=== PATIENT | male | born 1980 | race Caucasian/White ===

== ENCOUNTER 2021-01-02 12:21 | Emergency (ER) | payer BC, SELFPAY ==
[2021-01-02 12:39] VITALS: BP 148/86; PULSE 81; RESP 14; TEMP 36.9; O2SAT 97; BMI 29.4
--- NOTE | 2021-01-02 12:47 | HMH.EDUTC ---
[facility] [place] Clinical Impression: Encounter for laboratory testing for COVID-19 virus Disposition: Home, Self-Care Condition on Discharge: Good Instructions: DI for COVID-19 (Suspected or Confirmed ), Coronavirus Disease 2019, Preventing the Spread of Coronavirus Discharge Instructions Additional Instructions: *Monitor Temp, Over the counter Motrin or Tylenol as directed/as needed Tylenol every 4 hours and Motrin every 6 hours (as long as your family doctor has told you that you can take it) for fever or pain. and straight to ER if unable to lower temp less than 101.0 after medication given Follow up IMMEDIATELY for new or worsening symptoms or no Noticeable improvement over the next 48-72 hours. 911 for difficulty breathing or swallowing You were tested for today for COVID19 your test result should be back in the next 24-48 hours, you may call to the [facility] to see if your test results are back in the next 48 hours [phone] [facility] hours are 9am-9pm You was given a handout with instructions for Self Quarantine and Self isolation for while you wait on test results and what to do if they are positive If you are positive the Health Dept will be contacting you also Referrals: PCP,No [Primary Care Provider] - As needed Forms: Work/School Release Time of Disposition: 12:48 Medical Decision Making - Dre Inquiry Pt receiving controlled substance: No Dre was queried for this patient: No Vital Signs: 01/02/21 12:39 Temperature 98.5 F Temperature Source Oral Pulse Rate [Left] 81 Respiratory Rate 14 Blood Pressure [Right Arm] 148/86 H Blood Pressure Mean [Right Arm] 106 Blood Pressure Source [Right Arm] Automatic Cuff Blood Pressure Position [Right Arm] Sitting 02 Sat by Pulse Oximetry 97 Oxygen Delivery Method Room Air Orders (Tests/Meds): ORDERS Category Date Time Status Covid-19 Nasal PCR ([facility]) Routine Lab 01/02/21 12:25 [place]dered [facility] [place] - General Stated complaint: covid test Time Seen by Provider: 01/02/21 12:47 Mode of Arrival: Ambulatory Source of Information: Patient Limitations: No Limitations HEENT Symptoms (Recalled from RN notes): No Resp Symptoms (Recalled from RN notes): No Skin Symptoms (Recalled from RN notes): No MS Symptoms (Recalled from RN notes): No Functional Status (Recalled from RN notes): na - History of Present Illness Provider Complaint: Patient state that he has been under quarantine for COVID exposure States that he had a test about 10 days ago and it was negative and needed to get tested again before he can go back to work denies any symptoms - Related Data Home Medications Medication Instructions Recorded Confirmed No Known Home Medications 02/18/20 02/18/20 Allergies Allergy/AdvReac Type Severity Reaction Status Date / Time No Known Allergies Allergy Verified 02/18/20 10:51 - Worker's Comp Is this a Worker's Comp case?: No [facility] History - Hepatitis A Screen Drug use history?: No High risk sexual behaviors?: No History of sexually transmitted infection?: No Currently employed?: No Childcare worker?: No Do you have indoor plumbing?: Yes Do you have electricity?: Yes Attestation statement:: This patient has been screened for Hepatitis A risk factors. I have reviewed the patient's past medical history: Yes Other Surgeries: Yes: No Previous Surgery - Social History Smoking Status: Never smoker Tobacco Type: e-cigarettes # Packs/Day (cigarettes): 1 Alcohol Intake: never Occupational Status: employed Family Hx:: No significant family history ROS Obtained: Yes All systems reviewed & no additional complaints, Yes Systems reviewed as appropriate & no additional complaints - Constitutional Constitutional: Reports system reviewed and no additional complaints, except as docu, Denies body ache, Denies chills, Denies fever(s), Denies headache(s) - ENT Ears, Nose, Mouth, and Throat: Reports system reviewed and no additional complaints, e
[2021-01-02 12:52] VITALS: BP 143/80; PULSE 81; RESP 16; TEMP 36.9
== END 2021-01-02 12:59 | disposition home or self-care (01) ==
PROVIDERS: Emergency Provider Nurse Practitioner
DX: Z20.822 Contact with and (suspected) exposure to COVID-19 (principal); F17.290 Nicotine dependence, other tobacco product, uncomplicated
CPT/HCPCS: 99202; G0463; U0003

== ENCOUNTER 2022-08-19 19:40 | Emergency (ER) | payer BC, SELFPAY ==
[2022-08-19 19:59] VITALS: BP 114/80; PULSE 84; RESP 16; TEMP 37; O2SAT 97; BMI 30.2
--- NOTE | 2022-08-19 21:05 | HMH.EDWNDL ---
Discharge Plan Disposition Patient Disposition: Home, Self-Care Chief Complaint: Wound/Laceration Prescriptions Prescriptions: No Action No Known Home Medications Referrals Follow up/Referrals: Arden Bro [Primary Care Provider] - See instructions Clinical Impressions Clinical Impression: Laceration of thumb Instructions Patient Instructions: DI for Laceration Repair Discharge ED Provider: Tobi Colon Wound/Laceration HPI General Chief Complaint: Wound/Laceration Stated Complaint: AO@1900@home las to left thumb Time Seen by Provider: 08/19/22 20:40 Mode of Arrival: Ambulatory Source of Information: Patient Limitations: No Limitations Description of Symptoms (Recalled from ER Triage Doc. by RN): Pt was cutting a chitimacha with a knife and cut the tip of his left thumb. Bleeding was controlled prior to arrival. pt is able to feel and move effected thumb. Pt states he is UTD on TDAP History of Present Illness HPI narrative: lac distal lt thumb at home Onset (ago): hour(s) Extremity Location: Left: hand Place: home Patient tetanus UTD: Yes Context: sharp object use Associated symptoms: none Related Data Home Medications Medication Instructions Recorded Confirmed No Known Home Medications 02/18/20 02/18/20 Allergies Allergy/AdvReac Type Severity Reaction Status Date / Time No Known Allergies Allergy Verified 02/18/20 10:51 PFSH PFSH Social History Smoking Status: Current every day smoker tobacco type: e-cigarettes alcohol intake: never current occupational status: employed Travel in the last 8 weeks: None ROS Obtained: Yes All systems reviewed & no additional complaints except as documented Physical Exam General General appearance: alert Head Head exam: normocephalic Eye Eye exam: Present PERRL and EOMI ENT ENT exam: Present mucous membranes moist Neck Neck exam: Present trachea midline Respiratory Respiratory exam: Present normal lung sounds bilaterally Cardiovascular Cardiovascular exam: Present regular rate Extremities Exam Extremities exam: Present full ROM Neurological Exam Neurological exam: Present alert, oriented X3 and CN II-XII intact Psychiatric Psychiatric exam: Present normal affect Skin Skin exam: Present other (1 cm lac distal lt thumb w/o fb and tendon ok ) Medical Decision Making Medical Records Medical records reviewed: Yes I reviewed the patient's medical records. Dre Inquiry Pt receiving controlled substance: No Vital Signs: 08/19/22 19:59 Temperature 98.6 F Temperature Source Oral Pulse Rate [Right Radial] 84 Respiratory Rate 16 Blood Pressure [Right Arm] 114/80 Blood Pressure Mean [Right Arm] 91 Blood Pressure Source [Right Arm] Automatic Cuff Blood Pressure Position [Right Arm] Sitting 02 Sat by Pulse Oximetry 97 Oxygen Delivery Method Room Air Lab Data Lab results reviewed: Yes I reviewed the patient's lab results. Orders (Tests/Meds): ED MEDICATIONS Generic Name Dose Route Start Last Admin Trade Name Vanessa PRN Reason Stop Dose Admin Acetaminophen/Codeine Phosphate 1 packet 08/19/22 21:04 Acetaminophen 300mg W/Codeine 30mg Take Home Pack (6) PO 08/19/22 21:05 ONCE ONE Medical Decision Narrative: sutures out 10-12 days and recheck if needed Procedures Laceration Laceration 1: Site: thumb Side (If applicable): left Size (cm): 1 Description: other (flap) Depth: involves subcutaneous layer Amount of anesthesia used (mL): 6 Pre-repair: deep structures intact Skin layer closed with: nylon Size (cm): 4-0 Number of sutures: 7 Technique: simple, interrupted Nerve Block Nerve Block 1: Time out performed: Yes Local Anesthetic: lidocaine 1% Amount of anesthesia used (mL): 6 Side: Left Nerve Blocks: digital Procedure Successful: Yes Patient Tolerated Procedure
[2022-08-19 21:21] VITALS: BP 115/74; PULSE 80; RESP 16; TEMP 37; O2SAT 97
== END 2022-08-19 21:23 | disposition home or self-care (01) ==
PROVIDERS: Emergency Provider Emergency Medicine; PCP Internal Medicine
DX: S61.012A Laceration without foreign body of left thumb without damage to nail, initial encounter (principal); W26.0XXA Contact with knife, initial encounter; Y93.89 Activity, other specified
CPT/HCPCS: 12001; 99283

== ENCOUNTER 2023-11-30 14:51 | Emergency (ER) | payer BC, SELFPAY ==
--- NOTE | 2023-11-30 15:19 | XR_ITS ---
FINAL REPORT CLINICAL HISTORY: fall COMPARISON: None FINDINGS: LEFT TIBIA FIBULA: There is no acute fracture or dislocation. The joint spaces are intact. There is no soft tissue abnormality. IMPRESSION: No acute fracture Reviewed, Interpreted and Dictated by Abdon Donnelly III, MD Transcribed by Yoli Jin Authenticated and [facility]
[2023-11-30 15:30] VITALS: BP 129/84; PULSE 77; RESP 18; TEMP 36.6; O2SAT 96; BMI 30.7
--- NOTE | 2023-11-30 15:52 | EXP.UTC ---
Discharge Plan Disposition Patient Disposition: Home, Self-Care Condition: Good Prescriptions Prescriptions: No Action No Known Home Medications Referrals Follow up/Referrals: Arden Bro [Primary Care Provider] - See instructions Activity Restrictions/Add. Instructions Additional Instructions/Restrictions: follow up with Dr Williamson tomorrow at 930. elevate ice no wt bearing Clinical Impressions Clinical Impression: Acute leg pain Qualifiers: Laterality: left Qualified Code(s): M79.605 - Pain in left leg Instructions Patient Instructions: DI for Leg Pain Discharge ED Provider: Rosa ([facility])Cindy [facility] [place] HPI General Stated complaint: left leg pain no acciden Mode of Arrival: Ambulatory Source of Information: Patient Limitations: No Limitations Time Seen by Provider: 11/30/23 15:52 Description of Symptoms (Recalled from Triage Doc. by RN): calf pain. HEENT Symptoms (Recalled from RN notes): No Resp Symptoms (Recalled from RN notes): No Skin Symptoms (Recalled from RN notes): No MS Symptoms (Recalled from RN notes): Yes Functional Status (Recalled from RN notes): n/a History of Present Illness Provider Complaint: 43 yr old male presents for left calf pain. pt states he stepped down and felt a pop in the back of his leg, now has a knot in calf with pain Related Data Home Medications Medication Instructions Recorded Confirmed No Known Home Medications 02/18/20 02/18/20 Allergies Allergy/AdvReac Type Severity Reaction Status Date / Time No Known Allergies Allergy Verified 11/30/23 15:49 Worker's Comp Is this a Worker's Comp case?: No [facility] Disclaimer: The information contained in this section may have been updated after the patient was seen, as this information can be updated by other users. Social History , INFUSION THERAPY NURSE) Smoking Status: Current every day smoker tobacco type: e-cigarettes alcohol intake: never current occupational status: employed Travel in the last 8 weeks: None ROS Obtained: Yes All systems reviewed & no additional complaints except as documented Constitutional Constitutional: Reports system reviewed and no additional complaints, except as documented Eyes Eyes: Reports system reviewed and no additional complaints, except as documented ENT Ears, Nose, Mouth, and Throat: Reports system reviewed and no additional complaints, except as documented Cardiovascular Cardiovascular: Reports system reviewed and no additional complaints, except as documented Respiratory Respiratory: Reports system reviewed and no additional complaints, except as documented Gastrointestinal Gastrointestingal: Reports system reviewed and no additional complaints, except as documented Musculoskeletal Musculoskeletal: Reports system reviewed and no additional complaints, except as documented, Reports as per HPI, Reports limited range of motion, Reports muscle cramps and Reports myalgias Integumentary/Breasts Skin/Breast: Reports system reviewed and no additional complaints, except as documented Neurologic Neurologic: Reports system reviewed and no additional complaints, except as documented Hematologic/Lymphatic Henatologic/Lymphatic: Reports system reviewed and no additional complaints, except as documented Physical Exam General General appearance: alert and in no apparent distress Head Head exam: atraumatic Eye Eye exam: Present normal appearance and PERRL ENT ENT exam: Present normal exam Respiratory Respiratory exam: Present normal lung sounds bilaterally Cardiovascular Cardiovascular exam: Present regular rate and normal rhythm Expanded Lower Extremity Exam Left: Leg image: 1. baseball size palpable area Neurological Exam Neurological exam: Present alert Medical Decision Making Medical Records Medical records reviewed: Yes I reviewed the patient's medical records. Dre Inquiry Pt receiving controlled substance: No Dre was queried for this patient: No Vital Signs: 11/30/23 15:30 Temperature 97.9 F Temperature Source Oral Pulse Rate [Right Radial] 77 Respiratory Rate 18 Blood Pressure [Right Arm] 129/84 Blood Pressure Mean [Right Arm] 99 Blood Pressure Source [Right Arm] Automatic Cuff Blood Pressure Position [Right Arm] Sitting 02 Sat by Pulse Oximetry 96 Oxygen Delivery Method Room Air Lab Data Lab results reviewed: Yes I reviewed the patient's lab results. Orders (Tests/Meds): ORDERS Category Date Time Status Tibia/fibula XR left 2 views [XR tibia fibula LT 2V] Exams 11/30/23 15:19 Taken Stat
[2023-11-30 16:08] VITALS: BP 132/93; PULSE 82; RESP 18; TEMP 36.9; O2SAT 100
== END 2023-11-30 16:08 | disposition home or self-care (01) ==
PROVIDERS: Emergency Provider Nurse Practitioner Family; PCP Internal Medicine
DX: M79.662 Pain in left lower leg (principal); M62.831 Muscle spasm of calf; F17.290 Nicotine dependence, other tobacco product, uncomplicated
CPT/HCPCS: 73590; 99212; 99214; G0463

== ENCOUNTER 2025-09-12 17:46 | Emergency (ER) | payer BC, SELFPAY ==
[2025-09-12 18:00] VITALS: BP 139/82; PULSE 75; RESP 15; TEMP 36.8; O2SAT 98; BMI 31.6
--- OUTSIDE RECORDS SUMMARY | 2025-09-12 18:15 | XMS_ITS | Data Portability ---
Author Organization [facility] [place] [facility] Address [address] [place] [id number] Assessment No assessment recorded. Plan of Treatment Reminders Order Date Submit Date Provider Last Modified By Organization Details Last Modified Time Details Appointments None recorded . Lab TSH, serum or plasma 024 03/21/20 [facility] (Registration ), [address] , [place], [address], 4 15:13:28 lipid panel, serum 024 03/21/20 [facility] (Registration ), [address] , [place], [address], 4 15:13:28 Referral None recorded . Procedures None recorded . Surgeries None recorded . Imaging US, echocard iogram, transtho racic, complete , w/ color flow 024 03/21/20 [facility], [address], [place], [address], 4 15:05:15 Medication Orders None recorded . Patient TargetsNo targets recorded. Patient InstructionsNo instructions recorded. Reason for Referral None Reported. Results Created Date Observation Date Name Description Value Unit Range Abnormal Flag Note LastModifiedBy Organization Detail LastModifiedTime 03/19/20 24 03/02/[address] ment (PROC ) No observ ation record ed. [facility] Not Available 2023 11:41:15 Result Notes None recorded. Problems Name Problem SNOMED Code Status Onset Date Resolution Date Notes Provider Name and Address Organization Details Recorded Time Hematuria co-occurren t and due to chronic cystitis 9920736069321 01 Active Sejal nicholas, ERNA [facility] [place] 2 09:15:47 Patient encounter status 649291573 Active Sejal nicholas, ERNA [facility] [place] 2 09:15:47 Hemospermia 77375498 Active 2021 Lakeisha nicholas, [facility] [place] [facility] [place] 2 13:03:36 Pain in pelvis 62136388 Active 2021 Lakeisha nicholas, ERNA [facility] [place] [facility] [place] 2 13:03:48 Microscopic hematuria 062499625 Active 2021 Lakeisha nicholas, ERNA [facility] [place] 2 13:04:00 Problem Notes None recorded. Medical Equipment None Reported. Allergies No known drug allergies Medications Name Sig Start Date Stop Date Status Note LastModified by Organization Details LastModified Time Suboxone 8 mg-[address] 1 film every day by sublingual route. active Not Available Not Available No t Available Vitals Date Recorded Body weight Body mass index (BMI) Body height Oxygen saturation Oxygen saturation in Arterial blood by Pulse oximetry Heart rate Systolic And Diastolic Provider Name and Address Organization Details Last Updated DateTime 4 27171.5 8 g 30.4 kg/m2 177.8 cm 97 % 97 % 76 /min 117/77 mm[Hg] Sanam [facility] [place] 4 14:48:56 Social History None recorded. Functional Status Question Answer Note LastModified by Organizat ion Details LastModified Time Do you use any illicit or recreational drugs? No Information not available 09/20/2022 What is your level of alcohol consumption? 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 Family History Relationship Description Onset Age of this Age Resolved Age Notes LastModified by Organization Details LastModified Time Maternal Grandmother Heart disease [place] Not available 2023 14:49:15 Notes:Mother- colon Father- Leukemia Medical History No medical history recorded. Past Encounters Encounter ID Performer Location Encounter Start Date Encounter Closed Date Diagnosis/Indication Diagnosis SNOMED-CT Code Diagnosis ICD10 Code Diagnosis IMO Codes Diagnosis Note [id number] Amy Perla MD [facility] [address] [place] [address] 03/21/2024 14:38:42 03/21/2024 15:07:12 Palpitations 19144281 R00.2 recurrent with ER visist. discussed with the patient results of Holter monitor. Cigarette smoker 3945120 7 F17.210 strongly encouraged to quit. Screening for cardiovascular system disease 699152888 Z13.6 follow up fasting lipid profile. Health Concerns Section Related Observation LastModified by Organization Detai ls LastModified Time None Recorded Concern Status LastModified by Organization Details LastModified Time None Recorded Advance Directives Directive None Recorded Payers Insurance Date Sequence Insurance Name Policy Number Policy Parikh Covered Member ID Parikh Member ID Guarantor Name 06/18/2024 1 [employer] [id number] 1 Sean Scott [id number] Sean Scott Notes Date Note Type Note Provider Name and Address Organization Details Recorded Time 03/21/2024 text/html 44 year old male with past medical history of chronic smoker, currently on vape. patient had an episode of severe palpitations, with light headedness at work, he was not doing anything heavy as per the patient, came to the ER that day on 02/29/24 at the ER he had NSR on EKG. discharged from the ER and holter monitor was placed. he had recurrence of his palpitations, but no as severe, just mild and last for few seconds. no chest pain, no shortness of breath, no nausea, vomiting, or excessive sweating. no orthopnea, PND or leg swelling. no family history of heart disease at early age or early in the family. no cough, sputum or hemoptysis, no bleeding.I reviewed and discussed with the patient the EKG results from the ER visit and the holter monitor results. also reviewed the ER note. EKG 02/29/24 Normal sinus rhythm normal EKG.Holter monitor for 7 days done 03/02/24. few PVCs otherwise normal. Amy Perla MD [address] [facility], [place], [address], [facility] [place] [facility] [place] 03/21/2024 15:18:46
--- OUTSIDE RECORDS SUMMARY | 2025-09-12 18:15 | XMS_ITS | Data Portability ---
Author Organization [facility] [place] [facility] Address [address] [facility] [place] [address] Assessment Encounter Date Assessment Date Assessment LastModified by Organization Details LastModified Time 09/10/2025 09/10/2025 - 45-year-old male with a history of localized neck swelling presenting with recent armpit tenderness. - Recurrence and temporary exacerbations triggered by sour foods. - No significant systemic symptoms like fever or cough to suggest systemic illness. [email or web address] Not available 09/10/2025 16:10:17 Plan of Treatment Reminders Order Date Submit Date Provider Last Modified By Organization Details Last Modified Time Details Appointments CT SCAN 2024 09:40A M ct_scan Not available Not available Not available CT SCAN 2024 10:00A M ct_scan Not available Not available Not available Lab CBC w/ auto diff 2024 [facility], [address] [place] [address], [id number], 09/10/2025 19:45:20 CMP, serum or plasma 2024 [facility], [address] [place] [address], [id number], 09/10/2025 19:59:22 ldh, serum or plasma 2024 025 [facility], [address] [place] [address], [id number], 09/10/2025 19:57:26 lipid panel, serum 2023 024 [facility], [address] [place] [address], [id number], 12/30/2023 11:11:41 CMP, serum or plasma 2023 024 [email or web address] [facility], [address] [place] [address], [phone], 12/30/2023 11:11:42 CBC w/ auto diff 2023 024 [email or web address] [facility], [address] [place] [address], [id number], 12/30/2023 11:11:42 TSH, serum or plasma 2023 024 [email or web address] [facility], [address] [place] [address], [id number], 12/30/2023 11:11:42 urinalysi s, complete 2023 024 [email or web address] [facility], [address] [place] [address], [phone], 12/30/2023 11:11:42 glycohemo globin, total, blood 2023 024 [email or web address] [facility], [address] [place] [address], [id number], 12/30/2023 11:11:42 Referral None recorded. Procedures None recorded. Surgeries None recorded. Imaging CT, neck, soft tissue, w/ contrast 2024 025 [email or web address] [facility] Radiology [facility], [address] [place] [address], [id number], 09/11/2025 10:04:59 CT, chest, w/ contrast 2024 025 [email or web address] [facility], [address] [place] [address], [id number], 09/11/2025 10:04:29 Medication Orders amoxicill in 875 mg tablet 2024 025 MATIAS Griffin [facility], [address] [place], [place], [id number], 09/10/2025 15:59:13 Patient TargetsNo targets recorded. Patient Instructions Encounter Date Encounter Id Patient Instructions Last Modified By Organization Details Last Modified Time 09/10/2025 [id number] - Follow up with blood tests as scheduled. - Continue monitoring the neck and armpit area for any changes. - Seek medical care if swelling significantly worsens or systemic symptoms like fever develop. - Schedule CT scan at a convenient location to further investigate the cause. [email or web address] Not available 09/10/2025 16:10:20 Reason for Referral None Reported. Problems Name Problem SNOMED Code Status Onset Date Resolution Date Notes Provider Name and Address Organization Details Recorded Time History of drug abuse 730152036 Active 024 ROSSI CUEVAS, DO [address] [place], [address] , [facility] 4 16:41:35 Problem Notes None recorded. Medical Equipment None Reported. Allergies No known drug allergies Medications Name Sig Start Date Stop Date Status Note LastModified by Organization Details LastModified Time ofloxacin 0.3 % eye drops 12/02 completed Not Available Not Available Not Available amoxicillin 875 mg tablet TAKE 1 TABLET BY MOUTH EVERY TWELVE HOURS 09/10 completed Not Available Not Available Not Available buprenorphi ne 8 mg-naloxone 2 mg sublingual tablet dissolve 2 tablets under the tongue once a day active Not Available Not Available No t Available Vitals Date Recorded Body weight Body mass index (BMI) Body height Body temperature Heart rate Respiratory rate Oxygen saturation Oxygen saturation in Arterial blood by Pulse oximetry Systolic And Diastolic Provider Name and Address Organization Details Last Updated DateTime 4 16571.2 g 31.1 kg/m2 175.26 cm 97.8 [degF] 86 /min 15 /min 98 % 98 % 142/92 mm[Hg] Argentina Reddy [facility] 4 16:37:22 Date Recorded Body height Body mass index (BMI) Body weight Heart rate Oxygen saturation Oxygen saturation in Arterial blood by Pulse oximetry Systolic And Diastolic Provider Name and Address Organization Details Last Updated DateTime 5 175.26 cm 31.3 kg/m2 53890.9 8 g 75 /min 97 % 97 % 115/70 mm[Hg] Lakeisha Nataly [facility] 5 15:30:00 Date Recorded Body height Body mass index (BMI) Body weight Heart rate Oxygen saturation Oxygen saturation in Arterial blood by Pulse oximetry Systolic And Diastolic Provider Name and Address Organization Details Last Updated DateTime 5 175.26 cm 31.6 kg/m2 49374.7 7 g 80 /min 97 % 97 % 122/76 mm[Hg] ROSSI TORRES [facility], DO [address] [place], [address] [place] [address] 5 15:56:12 Social History Question Answer Notes LastModified by Organizat ion Details LastModified Time Tobacco Smoking Status Former Smoker Argentina Barry [facility] 12/02/2023 16:34:58 What Was The Date Of Your Most Recent Tobacco Screening? 12/02/2023 [email or web address] Information not available 12/02/2023 Sex: Unknown Functional Status None recorded. Mental Status None recorded. Family History Nothing Reported. Medical History No medical history recorded. Immunizations Vaccine Type Date Status Note Provider Nam e and Address Organization Details Recorded Time Td (adult), 2 Lf tetanus toxoid, preservative free, adsorbed 7 completed Not Available [facility] 09/10/2025 15:47:19 COVID-19, mRNA, LNP-S, PF, 30 mcg/0.3 mL dose 1 completed Not Available [facility] 09/10/2025 15:47:19 COVID-19, mRNA, LNP-S, PF, 30 mcg/0.3 mL dose 1 completed Not Available [facility] 09/10/2025 15:47:19 Past Encounters Encounter ID Performer Location Encounter Start Date Encounter Closed Date Diagnosis/Indication Diagnosis SNOMED-CT Code Diagnosis ICD10 Code Diagnosis IMO Codes Diagnosis Note [id number] ROSSI CUEVAS, DO [facility] [address] [place] [address] 12/02/2023 16:21:34 12/02/2023 16:47:37 Adult health examination 192381810 Z00.00 We will check routine laboratory blood test today History of drug abuse 37 [id number] F19.11 on suboxoen, following at Suboxone clinic, doing well [id number] ROSSI CUEVAS, DO [facility] [address] [facility] [place] [address] 03/25/2025 15:20:04 03/25/2025 16:04:56 Neck swelling 193676427 R22.1 [id number] 03/22-exam today is fairly benign, suspect he has a swollen lymph node.-Vinny mmend course of antibiotic s, if no better recommend further evaluation or imaging [id number] ROSSI CUEVAS, DO [facility] [place] [id number] [facility] [place] [address] 09/10/2025 15:46:10 09/10/2025 16:13:35 Neck swelling 341163108 R22.1 [id number] 03/22-exam today is fairly benign, suspect he has a swollen lymph node.-Vinny mmend course of antibiotic s, if no better recommend further evaluation or oxrvari93/ 25- got better.but now comes back at times. usually after eating.now with swollen lymph nodes in arms- CT scan to assess underlying causes. - Blood tests to identify any related issues. Health Concerns Section Related Observation LastModified by Organization Detai ls LastModified Time None Recorded Concern Status LastModified by Organization Details LastModified Time None Recorded Advance Directives Directive None Recorded Payers Insurance Date Sequence Insurance Name Policy Number Policy Parikh Covered Member ID Parikh Member ID Guarantor Name 09/09/2025 1 [place] [id number] 1 Sean Scott [id number] Sean Rembert Notes Date Note Type Note Provider Name and Address Organization Details Recorded Time 12/02/2023 text/html PHYSICAL OR RECHECK Colonoscopy-- Never done Depression PHQ2- done Medication Refills-- done PVC 20(Pneumonia vaccine) over 65- Flu vaccine, 18-65 ( high dose over 65)- REFUSED Patient is 43-year-old male here for annual examination. He was recently injured at work, is currently having evaluation for that, was recommended to get a medical evaluation also. He is here for routine labs, he has history of drug problems, has been on Suboxone and doing well with that no issues or concerns. No chest pain no trouble breathing no bowel or bladder changes ROSSI JARQUIN, DO [address] [place], [address], [facility] 12/12/2023 13:16:40 03/25/2025 text/html 45 year old male presents today complaining of a right sided lump on his neck under the jaw that he first noticed a few weeks ago, he endorses that the swelling comes and goes. When the lump is swollen, immobile, it is tender and the size of a fingertip. He states that this has never happened before. He denies any fevers, chills or recent illness.He has been on suboxone for approximately 10 years with no complications. ROSSI JARQUIN, DO [address] [place], [address], [facility] 03/25/2025 16:58:23 09/10/2025 text/html The patient is a 45-year-old male presenting with neck swelling. Initially, he encountered the swelling some months ago, attributing it to a possible lymph node issue, with antibiotics alleviating the swelling initially. Recurrence was observed through the summer, particularly aggravated by sour food intake which caused temporary gland enlargement. Recently, he discovered a tender spot in his armpit area following a period of general ache in the region, with all symptoms persisting without fever or cough. This tender area has not escalated significantly in complaints but warranted further evaluation. Documentation on this patient encounter was supported using voice-enabled Al technology. The patient consented to recording for the purpose of documenting the encounter. Provider reviewed content of the generated note prior to signature. ROSSI JARQUIN, [address] [place], [address], [facility] 09/10/2025 17:27:46
--- OUTSIDE RECORDS SUMMARY | 2025-09-12 18:15 | XMS_ITS | Continuity of Care Document ---
Author Organization [facility] [place] Address [address] [facility] [place] [address] Assessment Encounter Date Assessment Date Assessment LastModified [...] available Lab CBC w/ auto diff 2024 [facility], [address] [place] [address], [phone], 09/10/2025 19:45:20 CMP, serum or plasma 2024 025 [facility], [address] [place] [address], [phone], 09/10/2025 19:59:22 ldh, serum or plasma 2024 025 [facility], [address] [place] [address], [phone], 09/10/2025 19:57:26 Referral None recorded. Procedures None recorded. Surgeries None recorded. Imaging CT, neck, soft tissue, w/ contrast 2024 025 [email or web address] [facility], [address] [place], [address], 09/11/2025 10:04:59 CT, chest, w/ contrast 20[email or web address] [facility]iology [facility], [address] [place], [address], 09/11/2025 10:04:29 Medication Orders None recorded. Patient TargetsNo targets recorded. Patient Instructions Encounter Date Encounter Id Patient Instructions Last Modified By Organization Details Last Modified Time 09/10/2025 [id number] - Follow up with blood tests as [...] Details Recorded Time History of drug abuse 780036143 Active 024 ROSSI KEYES , DO [address] [place], [address] , [facility] 4 16:41:35 Problem Notes None recorded. Medical [...] No t Available Vitals Date Recorded Body height Body mass index (BMI) Body weight Heart rate Oxygen saturation Oxygen saturation in Arterial blood by Pulse oximetry Systolic And Diastolic Provider Name and Address Organization Details Last Updated DateTime 10/14/202 5 175.26 cm 31.6 kg/m2 61879.7 7 g 80 /min 97 % 97 % 122/76 mm[Hg] ROSSI KELLER, DO [address] [place], [address] , [facility] 15:56:12 Social History Question Answer Notes LastModified by Organizat ion Details LastModified Time Tobacco Smoking Status Former Smoker [place] Reddy [facility], [facility] 12/02/2023 16:34:58 What Was The Date [...] preservative free, adsorbed 7 completed Not Available [facility] 09/10/2025 15:47:19 COVID-19, mRNA, LNP-S, PF, 30 mcg/0.3 mL dose 1 completed Not Available [facility] 09/10/2025 15:47:19 COVID-19, mRNA, LNP-S, PF, 30 mcg/0.3 mL dose 1 completed Not Available [facility] 09/10/2025 15:47:19 Past Encounters Encounter ID Performer Location Encounter Start Date Encounter Closed Date Diagnosis/Indication Diagnosis SNOMED-CT Code Diagnosis ICD10 Code Diagnosis IMO Codes Diagnosis Note [id number] ROSSI KEYES , DO [facility] [address] [facility] [facility] [address] [place] [address] 09/10/2025 15:46:10 09/10/2025 16:13:35 Neck swelling 736136945 R22.1 [id number] 03/22-exam today is fairly benign, suspect he has a swollen lymph node.-Vinny mmend course of antibiotic s, if no better recommend further evaluation or [id number]/ 25- got better.but now comes back at times. usually after eating.now with swollen lymph nodes in arms- CT scan to assess underlying causes. - Blood tests to identify any related issues. Health Concerns Section Related Observation LastModified by Organization Detai ls LastModified Time None Recorded Concern Status LastModified by Organization Details LastModified Time None Recorded Payers Encounter Date Sequence Insurance Name Policy Number Policy Parikh Covered Member ID Parikh Member ID Guarantor Name 09/10/2025 1 [place] [id number] 1 Sean Scott [id number] Sean Scott Notes Date Note Type Note Provider Name and Address Organization Details Recorded Time 09/10/2025 text/html The patient is a 45-year-old [...] generated note prior to signature. ROSSI JARQUIN, DO [address], [place], [address], [facility] 09/10/2025 17:27:46
--- NOTE | 2025-09-12 18:23 | ED_ITS ---
Discharge Plan Disposition Patient Disposition: Home, Self-Care Condition: Good Prescriptions Prescriptions: New omeprazole 20 mg capsule,delayed release(DR/EC) 20 mg PO DAILY 14 Days Qty: 14 0RF dicyclomine 20 mg tablet 20 mg PO BID 7 Days Qty: 14 0RF No Action buprenorphine-naloxone 8-2 mg tablet, sublingual 1 tab sublingual Referrals Follow up/Referrals: Arden Bro [Primary Care Provider, Medical] - See instructions Activity Restrictions/Add. Instructions Additional Instructions/Restrictions: You can use the omeprazole daily for the next 2 weeks to see if you have a component of gastritis or a early developing ulcer. I have also sent you with Good to help with cramping abdominal pain. Please follow-up with your regular doctor. I have sent you with a referral to Dr. Petersen who is our GI doctor who can see you and help evaluate if you have continued abdominal pain. Return to the emergency department for any acute or worsening abdominal pain or if you have any other acute concerns. Clinical Impressions Clinical Impression: Abdominal pain Print Language Print Language: Cameroonian Discharge ED Provider: Paige Levine Adult HPI General Chief complaint: PAIN Stated complaint: Abd. Pain/Bloating/Back Pain Time Seen by Provider: 09/12/25 18:23 Mode of Arrival: Ambulatory Source of Information: Patient Description of Symptoms (Recalled from ER Triage Doc. by RN): patient presents to the ED for belly bloat and urinary frequency/urgency patient stated he went to tot doctor a week ago for swollen lymph nodes in his neck, axilla and groin and had blood work here and never heard back from his doctor. cheif complaint is the belly bloat and urinary issues. History of Present Illness HPI narrative: Is a 45-year-old gentleman who presented to the emergency department with multiple complaints. Patient states that he feels that his abdomen is more bloated than usual. Patient states that he has had urinary frequency but denies any dysuria. Patient states that he is having abdominal pain that is intermittent in nature and feels that his abdomen is in knots. Patient states that he recently saw his primary care provider and had blood work done. Patient is unsure what his blood work showed. Patient denies any pain in his back. Patient denies any chest pain or shortness of breath. Patient states that he was seen by his doctor for some lymphadenopathy in his neck. Related Data Home Medications ?Medication ?Instructions ?Recorded ?Confirmed buprenorphine 8 mg-naloxone 2 mg 1 tab sublingual 03/2101/10/24 sublingual tablet Previous Rx's ?Medication ?Instructions ?Recorded dicyclomine 20 mg tablet 20 mg PO BID 7 days #14 tabs 09/12/25 omeprazole 20 mg capsule,delayed 20 mg PO DAILY 14 day s #14 caps 09/12/25 release Allergies Allergy/AdvReac Type Severity Reaction Status Date / Time No Known Allergies Allergy Verified 01/10/24 08:50 [facility] Disclaimer: The information contained in this section may have been updated after the patient was seen, as this information can be updated by other users. Family History Other Alcoholism Cancer Kidney disease Social History Smoking Status: Heavy tobacco smoker tobacco type: e-cigarettes alcohol intake: never current occupational status: employed Travel in the last 8 weeks?: None Have you lived/traveled outside [place] in past 30 days?: No Contact w/someone who lives/traveled outside [place] past 30 days?: No Exposure to someone with infectious disease in past 14 days?: No Do you have a fever (greater than 100.4 F or 38 C)?: No Have you tested positive for COVID-19?: No Exposed to someone with COVID-19 in past 14 days?: No Do you have a sore throat?: No Do you have a cough?: No Do you have any weakness?: No Do you have any diarrhea?: No Are you experiencing any unusual bleeding?: No Do you have any muscle aches/pain?: No Do you have any abdominal pain?: No Are you experiencing loss of taste or smell?: No Other Medical History Have you received the Pneumonia Vaccine: No ROS Obtained: Yes All systems reviewed & no additional complaints except as documented and Yes Systems reviewed as appropriate & no additional complaints except as documented Physical Exam General General appearance: alert and in no apparent distress Head Head exam: atraumatic, normocephalic and normal inspection Eye Eye exam: Present normal appearance, PERRL and EOMI; Absent scleral icterus ENT ENT exam: Present normal exam and normal external ear exam Neck Neck exam: Present normal inspection and full ROM Chest Chest inspection: Present normal inspection and symmetric chest wall rise Respiratory Respiratory exam: Present normal lung sounds bilaterally; Absent respiratory distress or wheezes Cardiovascular Cardiovascular exam: Present regular rate, normal rhythm and normal heart sounds Abdominal Exam Abdominal exam: Present soft, distention and tenderness (epigastric); Absent guarding or rebound Extremities Exam Extremities exam: Present normal inspection and full ROM Back Exam Back exam: Present normal inspection and full ROM Neurological Exam Neurological exam: Present alert and oriented X3 Psychiatric Psychiatric exam: Present normal affect and normal mood Skin Skin exam: Present warm and dry Medical Decision Making Medical Records Screening: Per USPSTF and CDC recommendations, given the prevalence of disease in our region, it is our hospital?s policy to screen for HIV and viral Hepatitis for all patients aged 18 and over and those with ongoing risk factors. Dre Inquiry Pt receiving controlled substance: No Vital Signs: 09/12/25 18:00 09/12/25 19:46 09/12/25 21:05 Temperature 98.2 F 98.2 F 98.2 F Temperature Source Oral Oral Oral Pulse Rate 65 57 L Pulse Rate [Right Radial] 75 Respiratory Rate 15 16 15 Blood Pressure 148/94 H 128/83 Blood Pressure [Right Arm] 139/82 Blood Pressure Mean [Right Arm] 101 Blood Pressure Source Automatic Cuff Automatic Cuff Blood Pressure Source [Right Arm] Automatic Cuff Blood Pressure Position Sitting Sitting Blood Pressure Position [Right Arm] Sitting 02 Sat by Pulse Oximetry 98 97 Oxygen Delivery Method Room Air Room Air Room Air Lab Data Lab results reviewed: Yes I reviewed the patient's lab results. Lab Results 09/12/25 18:20: Urine Color Yellow, Urine Appearance Clear, Urine pH 6.0, Ur Specific [place] <= 1.005, Urine Protein Negative, Urine Glucose (UA) Negative, Urine Ketones Negative, Urine Blood Negative, Urine Nitrate Negative, Urine Bilirubin Negative, Urine Urobilinogen 0.2, Ur Leukocyte Esterase Negative, Urine RBC None, Urine WBC None, Ur Squamous Epith Cells Occasional, Urine Bacteria None 09/12/25 19:00: WBC 7.0, RBC 4.42 L, Hgb 14.0 L, Hct 40.4 L, MCV 91.4, MCH 31.7 H, MCHC 34.7, RDW 12.0, Plt Count 287, MPV 10.6 H, Neut % (Auto) 66.0, Lymph % (Auto) 25.6, [place] % (Auto) 6.8, Eos % (Auto) 0.6, Baso % (Auto) 0.9, Neut # (Auto) 4.6, Lymph # (Auto) 1.8, [place] # (Auto) 0.5, Eos # (Auto) 0.0, Baso # (Auto) 0.1, Sodium 140, Potassium 3.9, Chloride 98, Carbon Dioxide 30, Anion Gap 15.9 H, BUN 18, Creatinine 0.90, Estimated Creat Clear 144, Estimated GFR 92, Est GFR ( Amer) 111, Glucose 110 H, Calcium 9.5, Magnesium 2.0, Total Bilirubin 0.7, AST 34, ALT 29, Alkaline Phosphatase 56, Troponin I < 0.01, Total Protein 8.3 H, Albumin 5.0, Globulin 3.3 H, Albumin/Globulin Ratio 1.5, Lipase 52 09/12/25 19:00 09/12/25 19:00 Orders (Tests/Meds): ED MEDICATIONS Discontinued Medications Generic Name Dose Route Start Last Admin Trade Name Freq PRN Reason Stop Dose Admin Belladonna Alkaloids 60 ml 09/12/25 18:42 09/12/25 19:06 Belladonna Alkaloids 60 Ml Ml PO 09/12/25 18:43 60 ml ONCE ONE Administration Dicyclomine HCl 20 mg 09/12/25 18:44 09/12/25 19:05 Dicyclomine 10mg Capsule PO 09/12/25 18:45 20 mg ONCE ONE Administration Famotidine 20 mg 09/12/25 18:42 09/12/25 19:06 Famotidine 20mg/2ml Vial IV 09/12/25 18:43 20 mg ONCE ONE Administration Iopamidol 75 ml 09/12/25 19:18 09/12/25 19:19 Iopamidol-370 (76%);100ml Bottle IV 09/12/25 19:19 75 ml ONCE ONE Administration Sodium Chloride 8 ml 09/12/25 18:42 09/12/25 19:06 Sodium Chloride 0.9% 10ml Vial IV 10/12/25 18:41 8 ml NEEDED PRN Administration dilute pepcid Sodium Chloride 10 ml 09/12/25 19:18 09/12/25 19:19 Sodium Chloride 0.9% 10ml Syr (Rad Only) IV 09/12/25 19:19 10 ml ONCE ONE Administration ORDERS Category Date Time Status CT abdomen pelvis w con Stat Cat Scan 09/12/25 18:42 Completed CXR --portable [XR chest portable] Stat Exams 09/12/25 18:44 Completed CBC w/Auto Diff [Complete Blood Count Auto Diff] Stat Lab 09/12/25 19:00 Completed CMP [Comprehensive Metabolic Panel] Stat Lab 09/12/25 19:00 Completed Lipase Stat Lab 09/12/25 19:00 Completed MAG [Magnesium] Stat Lab 09/12/25 19:00 Completed Trop I [Troponin I] Stat Lab 09/12/25 19:00 Completed Urinalysis and Microscopic Stat Lab 09/12/25 18:20 Completed Medical Decision Narrative: Patient is an otherwise healthy 45-year-old male who presented to the emergency department with urinary symptoms and abdominal bloating. On arrival, patient was hemodynamically stable with unremarkable vital signs. Differential includes but not limited to: Peptic ulcer disease, gastritis, pancreatitis, gallbladder disease, bowel obstruction, amongst others. Labs reviewed and interpreted by myself: CBC showed no leukocytosis, hemoglobin was stable. MP was unremarkable. Troponin was less than 0.01. UA showed no evidence of infection. Lipase was normal. X-ray was reviewed and interpreted by myself and showed no acute for consolidation, pneumothorax, pleural effusion or other acute cardiopulmonary process. CT abdomen is reviewed and interpreted by myself and per radiology there is no acute findings. EKG was reviewed and interpreted by myself and showed normal sinus rhythm at [address] or T wave changes concerning for ischemia. Patient was given Bentyl, a GI cocktail in the emergency department and patient reported some improvement in his symptoms. Given patient's otherwise unremarkable workup I felt the patient was appropriate for discharge home. Patient was sent with an outpatient referral to GI if his symptoms were to continue. Patient was also sent with Bentyl and omeprazole. Patient was otherwise discharged home in stable condition, return precautions were discussed. Critical Care Critical Care Time Critical Care Time: No
--- NOTE | 2025-09-12 18:23 | PC.NURSE ---
patient agreeable to start his care in treatment room 12, understands family has to remain in the lobby
[2025-09-12 18:28] LABS: Microscopic, Urine URINE MICROSCOPIC (MICROSCOPIC)
[2025-09-12 18:30] LABS: Bilirubin,Urine Negative (Negative); Color,Urine YELLOW (Yellow); Glucose,Urine (UA) Negative (Negative); Ketones,Urine Negative (Negative); Leukocyte Esterase,Urine Negative (Negative); PH,Urine 6.0 (5.0-8.5); Protein,Urine Negative (Negative); Specific Gravity, Urine <= 1.005 (1.005-1.030); Urobilinogen,Urine 0.2 EU/dl (0.2)
--- NOTE | 2025-09-12 18:42 | CT_ITS ---
PROCEDURE INFORMATION: Exam: CT Abdomen And Pelvis With Contrast Exam date and time: 09/12/2025 7:20 PM Age: 45 years old Clinical indication: Abdominal tenderness TECHNIQUE: Imaging protocol: Computed tomography of the abdomen and pelvis with contrast. Radiation optimization: All CT scans at this facility use at least one of these dose optimization techniques: automated exposure control; mA and/or kV adjustment per patient size (includes targeted exams where dose is matched to clinical indication); or iterative reconstruction. Contrast material: ISOVUE; Contrast volume: 75 ml; Contrast route: IV; COMPARISON: No relevant prior studies available. FINDINGS: Lungs: The visualized lung bases demonstrate no focal infiltrates or pleural effusions. Liver: The liver appears within normal limits. Gallbladder and biliary ducts: The gallbladder is normal. There is no evidence of biliary ductal dilation. Pancreas: The pancreas is normal. Spleen: The spleen is normal. Adrenal glands: The adrenal glands appear within normal limits. Kidneys and ureters: The kidneys are normal. Stomach and bowel: The stomach appears within normal limits. No wall thickening or inflammatory change. Appendix: No evidence of appendicitis. Intraperitoneal space: No free air. No evidence for focal fluid collection or ascites. No evidence for omental thickening. Vasculature: Unremarkable. No abdominal aortic aneurysm. Lymph nodes: Unremarkable. No pathologically enlarged lymph nodes are identified. Urinary bladder: Minimal prominence of the bladder wall may be due to decompressed state although would recommend correlation with urinalysis. Reproductive: Unremarkable as visualized. Bones/joints: Unremarkable. No acute fracture. Soft tissues: Unremarkable. IMPRESSION: 1. Minimal prominence of the bladder wall may be due to decompressed state although would recommend correlation with urinalysis. 2. Otherwise unremarkable exam
--- NOTE | 2025-09-12 18:44 | XR_ITS ---
PROCEDURE INFORMATION: Exam: XR Chest Exam date and time: 09/12/2025 7:20 PM Age: 45 years old Clinical indication: Pain; Chest pressure TECHNIQUE: Imaging protocol: Radiologic exam of the chest. Views: 1 view. COMPARISON: CT ABDOMEN PELVIS W CON 09/12/2025 7:20 PM FINDINGS: Lungs: Unremarkable. No consolidation. Pleural spaces: Unremarkable. No pleural effusion. No pneumothorax. Heart/Mediastinum: Unremarkable. No cardiomegaly. Bones/joints: Unremarkable. IMPRESSION: No acute findings.
[2025-09-12 18:46] LABS: Squamous Epithelial Cell,Urine Occasional #/hpf (0-5)
--- NOTE | 2025-09-12 18:52 | ECG_ITS ---
APPROVED REPORT Exam: Resting ECG HR:76 bpm ECG Measurements Heart Rate 76 AXES IN 156 P 58 QRSd 98 QRS 23 QT 376 T 10 QTc 406 Conclusion Normal Sinus rhythm without acute ST or T wave changes concerning for ischemia Electronically signed by : Paige Levine, 09/13/2025 22:47:10
[2025-09-12] MEDS: FAMOTIDINE 20MG/2ML VIAL 20 MG IV (19:06)
[2025-09-12] MEDS: SODIUM CHLORIDE 0.9% 10ML VIAL 8 ML IV (19:06)
[2025-09-12] MEDS: BELLADONNA ALKALOIDS 60 ML ML PO (19:06)
[2025-09-12 19:11] LABS: Hematocrit 40.4 % (42.0-52.0); Hemoglobin 14.0 g/dL (14.1-18.0); Immature Granulocytes % 0.1 %; Mean Corpuscular HGB Conc 34.7 g/dL (31.8-35.4); Mean Corpuscular Hemoglobin 31.7 pg (27.0-31.2); Mean Corpuscular Volume 91.4 fl (80-94); Nucleated Red Blood Cells % 0 %; Platelet Count 287 K/mm3 (142-424); Red Blood Count 4.42 M/mm3 (4.60-6.20); Red Cell Distribution Width-SD 40.4 fL; White Blood Count 7.0 K/mm3 (4.8-10.8)
[2025-09-12 19:19] LABS: Albumin Level 5.0 g/dl (3.5-5.0); Chloride 98 mmol/L (98-107); Potassium 3.9 mmoL/L (3.5-5.1); Sodium 140 mmol/L (136-145)
[2025-09-12] MEDS: SODIUM CHLORIDE 0.9% 10ML SYR (RAD ONLY) 10 ML IV (19:19)
[2025-09-12] MEDS: IOPAMIDOL-370 (76%);100ML BOTTLE 75 ML IV (19:19)
[2025-09-12 19:21] LABS: Alanine Aminotransferase 29 U/L (12-78); Anion Gap 15.9 mEq/L (5-15); Aspartate Amino Transferase 34 U/L (17-59); Blood Urea Nitrogen 18 mg/dl (9-20); Carbon Dioxide 30 mmol/L (22.0-30.0); Creatinine Clearance Estimated 144 mL/min (50-200); Creatinine,Serum 0.90 mg/dl (0.66-1.25); Estimated Glomerular Filt Rate 92 ml/min (>60); GFR (African American) 111 ML/MIN (>60)
[2025-09-12 19:22] LABS: Albumin/Globulin Ratio 1.5 (1.1-1.8); Alkaline Phosphatase 56 U/L (38-126); Bilirubin,Total 0.7 mg/dl (0.2-1.3); Calcium 9.5 mg/dl (8.4-10.2); Globulin 3.3 g/dL (1.3-3.2); Glucose 110 mg/dl (74-100); Lipase 52 U/L (23-300); Magnesium 2.0 mg/dl (1.6-2.3); Total Protein,Serum 8.3 g/dl (6.3-8.2)
[2025-09-12 19:34] LABS: Troponin I < 0.01 ng/ml (0.00-0.034)
[2025-09-12 19:46] VITALS: BP 148/94; PULSE 65; RESP 16; TEMP 36.8; O2SAT 97
[2025-09-12 21:05] VITALS: BP 128/83; PULSE 57; RESP 15; TEMP 36.8; O2SAT 100
== END 2025-09-12 21:05 | disposition home or self-care (01) ==
PROVIDERS: Nurse Practitioner Family; Emergency Provider Student in an Organized Health Care Education/Training Program; PCP Internal Medicine
DX: R10.13 Epigastric pain (principal); R14.0 Abdominal distension (gaseous); F17.210 Nicotine dependence, cigarettes, uncomplicated
CPT/HCPCS: 71045; 74177; 80053; 81001; 83690; 83735; 84484; 85025; 93005; 96374; 99283; 99285; J1308; Q9967